=== PATIENT | male | born 1985 | race Caucasian/White ===

== ENCOUNTER 2023-01-17 19:54 | Emergency (ER) | payer OTHER ==
[2023-01-17] MEDS ORDERED: Aspirin 81 MG Tab.Chew PO ONE (20:24)
[2023-01-17] MEDS ORDERED: Sodium Chloride 0.9% 2.5 ML Syringe FLUSH PRN (20:24)
[2023-01-17] MEDS ORDERED: Sodium Chloride 0.9% 10 ML Syringe FLUSH PRN (20:24)
[2023-01-17] MEDS ORDERED: LORazepam 2 MG/ML SDV IVPUSH ONE (20:24)
[2023-01-17] MEDS ORDERED: Sodium Chloride 0.9% 1,000 ML IV ONE (20:24)
[2023-01-17 21:21] LABS: BLOOD UREA NITROGEN,BUN 21 mg/dL (7.0-18.0); CARBON DIOXIDE,CO2 24.7 mmol/L (21.0-32.0); CHLORIDE,CL 103 mmol/L (98-107); GLUCOSE RANDOM 76 mg/dL (74-106); POTASSIUM,K 3.9 mmol/L (3.5-5.1); SODIUM,NA 141 mmol/L (136-148)
[2023-01-17 21:29] LABS: ESTIMATED GFR 98 mL/min (>60)
[2023-01-17] MEDS ORDERED: Iopamidol 755 MG/ML 500 ML Multipack Bottle IVPUSH STA (22:55)
== END 2023-01-18 01:25 | disposition home or self-care (01) ==
LOC: MW.ED 19:54
DX: R07.9 Chest pain, unspecified (principal); I10 Essential (primary) hypertension; F17.200 Nicotine dependence, unspecified, uncomplicated; Z79.82 Long term (current) use of aspirin; Z79.899 Other long term (current) drug therapy
CPT/HCPCS: 36415; 71045; 71045-26; 71275; 71275-26; 80053; 80307; 83735; 83880; 84100; 84484; 85025; 93005; 96374; 99285-25; A9270-GY; J2060; J3490; J7030; Q9967